=== PATIENT | male | born 1970 | race Caucasian/White ===

== ENCOUNTER 2021-07-27 00:32 | Emergency (ER) | payer BC, OTHER ==
[2021-07-27 02:11] LABS: Hemoglobin 15.8 g/dL (13.5-17.5); Mean Corpuscular HGB CONC 36.2 g/dL (32.0-36.0); Mean Corpuscular Volume 88.5 fl (81.2-95.1); Mean Platelet Volume 10.5 fl (7.4-10.4); Platelet Count 162 10x3/uL (150-450); RBC Distribution Width 12.3 % (11.5-14.5); Red Blood Cell (RBC) Count 4.94 10x6/uL (4.32-5.72); White Blood Cell (WBC) Count 4.8 10x3/uL (3.5-10.5)
[2021-07-27 02:12] LABS: #Neutrophils 2.7 10x3/uL (1.5-8.4); %Neutrophils 56.4 % (40.0-75.0)
[2021-07-27 02:15] LABS: MDiff Complete? YES; Manual Diff?? YES
[2021-07-27 02:30] LABS: Band 8 % (5-11); Lymphocytes 23 % (21-51); Monocytes 15 % (0-10); Neutrophil 49 % (42-75); Reactive Lymphocytes 4 % (0-10)
[2021-07-27 02:32] LABS: Platelet Morphology Comment Appears Adequate
[2021-07-27 02:55] LABS: AST (SGOT) 37 U/L (5-34); Albumin 4.5 g/dL (3.5-5.0); Alkaline Phosphatase 161 U/L (40-110); Anion Gap 17 mmol/L (10-20); BUN (Urea Nitrogen) 10 mg/dL (8.4-25.7); Bilirubin, Total 0.6 mg/dL (0.2-1.2); Calc. Creatinine Clearance 0 mL/min (70-130); Calcium 9.5 mg/dL (7.8-10.44); Carbon Dioxide 25 mmol/L (22-29); Chloride 101 mmol/L (98-107); Globulin 3.1 g/dL (2.4-3.5); Glucose 105 mg/dL (70-105); Potassium 4.1 mmol/L (3.5-5.1); Protein, Total 7.6 g/dL (6.0-8.3); Sodium 139 mmol/L (136-145)
[2021-07-27 03:00] LABS: ALT (SGPT) 44 U/L (8-55)
== END 2021-07-27 03:40 | disposition home or self-care (01) ==
LOC: CSHERS 00:32
DX: U07.1 COVID-19 (principal)
CPT/HCPCS: 71045; 80053; 84484; 85025; 93005

== ENCOUNTER 2021-07-28 20:27 | Emergency (ER) | payer BC | END 2021-07-28 20:50 | disposition home or self-care (01) | LOC: CSHERS 20:27 | DX: U07.1 COVID-19 (principal) | CPT/HCPCS: 93005 ==

== ENCOUNTER 2022-12-05 21:20 | Inpatient (IN) | payer BC ==
[~2022-12-05 21:20] MED LIST: Iopamidol 370 76% 100 ML VIAL ONE
[2022-12-05 22:30] LABS: #Basophils 0.1 10x3/uL (0.0-0.2); #Eosinphils 0.4 10x3/uL (0.0-0.5); #Monocytes 0.9 10x3/uL (0.0-1.1); #Neutrophils 3.2 10x3/uL (1.5-8.4); %Eosinophils 5.5 % (0.0-6.0); %Monocytes 12.6 % (0.0-10.0); %Neutrophils 46.5 % (40.0-75.0); Hematocrit 43.6 % (38.8-50.0); Hemoglobin 15.2 g/dL (13.5-17.5); Mean Corpuscular HGB CONC 34.9 g/dL (32.0-36.0); Mean Corpuscular Hemoglobin 31.3 pg (27.0-33.0); Mean Corpuscular Volume 89.9 fl (81.2-95.1); Mean Platelet Volume 9.5 fl (7.4-10.4); Platelet Count 398 10x3/uL (150-450); RBC Distribution Width 12.2 % (11.5-14.5); Red Blood Cell (RBC) Count 4.85 10x6/uL (4.32-5.72); White Blood Cell (WBC) Count 6.8 10x3/uL (3.5-10.5)
[2022-12-05 22:31] LABS: ALT (SGPT) 30 U/L (8-55); AST (SGOT) 27 U/L (5-34); Albumin 4.1 g/dL (3.5-5.0); Alkaline Phosphatase 174 U/L (40-110); Anion Gap 15 mmol/L (10-20); BUN (Urea Nitrogen) 8 mg/dL (8.4-25.7); Bilirubin, Total 0.3 mg/dL (0.2-1.2); Calc. Creatinine Clearance 0 mL/min (70-130); Calcium 9.4 mg/dL (7.8-10.44); Carbon Dioxide 23 mmol/L (22-29); Chloride 104 mmol/L (98-107); Estimated GFR 71; Globulin 3.4 g/dL (2.4-3.5); Glucose 102 mg/dL (70-105); Lipase 65 U/L (8-78); Magnesium 2.2 mg/dL (1.6-2.6); Potassium 3.9 mmol/L (3.5-5.1); Protein, Total 7.5 g/dL (6.0-8.3); Sodium 138 mmol/L (136-145)
[2022-12-05 23:09] LABS: SARS-CoV-2 NAA Rapid Test Not Detected (NotDetected)
[2022-12-05] MEDS ORDERED: Acetaminophen 650 MG Suppository PR PRN (23:29)
[2022-12-05] MEDS ORDERED: Bisacodyl 5 MG TAB PO PRN (23:29)
[2022-12-05] MEDS ORDERED: Senokot S 8.6-50 MG TAB PO PRN (23:29)
[2022-12-05] MEDS ORDERED: Ondansetron PF 4 MG/2 ML Vial IVP PRN (23:29)
[2022-12-05] MEDS ORDERED: Loperamide HCl 2 MG CAP PO PRN ×2 (23:29)
[2022-12-05] MEDS ORDERED: HYDROcodone/Acetaminophen 5/325 mg Tablet PO PRN (23:29)
[2022-12-05] MEDS ORDERED: Ondansetron ODT 4 MG TAB PO PRN (23:29)
[2022-12-05] MEDS ORDERED: Acetaminophen 325 MG TAB PO PRN (23:29)
[2022-12-05] MEDS ORDERED: Heparin 10,000 UNITS/ 10 ML VIAL SLOW IVP SCH (23:45)
[2022-12-05] MEDS ORDERED: Heparin 25,000 units/D5W 500 ML IVPB SCH (23:45)
[2022-12-06 00:16] LABS: Hemoglobin 15.3 g/dL (13.5-17.5); Platelet Count 357 10x3/uL (150-450)
[2022-12-06] MEDS ORDERED: Heparin 10,000 UNITS/ 10 ML VIAL ONE (02:08)
[2022-12-06] MEDS ORDERED: Heparin 25,000 units/D5W 500 ML ONE (02:08)
[2022-12-06 04:26] LABS: #Basophils 0.1 10x3/uL (0.0-0.2); #Eosinphils 0.4 10x3/uL (0.0-0.5); #Monocytes 0.8 10x3/uL (0.0-1.1); #Neutrophils 5.7 10x3/uL (1.5-8.4); %Basophils 0.9 % (0.0-2.0); %Eosinophils 4.2 % (0.0-6.0); %Lymphocytes 24.1 % (18.0-47.0); %Neutrophils 61.6 % (40.0-75.0); ALT (SGPT) 32 U/L (8-55); AST (SGOT) 29 U/L (5-34); Albumin 4.2 g/dL (3.5-5.0); Alkaline Phosphatase 180 U/L (40-110); Anion Gap 15 mmol/L (10-20); BUN (Urea Nitrogen) 8 mg/dL (8.4-25.7); Bilirubin, Total 0.3 mg/dL (0.2-1.2); Calc. Creatinine Clearance 0 mL/min (70-130); Calcium 9.5 mg/dL (7.8-10.44); Carbon Dioxide 25 mmol/L (22-29); Chloride 103 mmol/L (98-107); Estimated GFR 67; Globulin 3.6 g/dL (2.4-3.5); Glucose 105 mg/dL (70-105); Hematocrit 45.8 % (38.8-50.0); Hemoglobin 15.6 g/dL (13.5-17.5); Mean Corpuscular HGB CONC 34.1 g/dL (32.0-36.0); Mean Corpuscular Hemoglobin 31.2 pg (27.0-33.0); Mean Corpuscular Volume 91.6 fl (81.2-95.1); Mean Platelet Volume 9.6 fl (7.4-10.4); Platelet Count 432 10x3/uL (150-450); Potassium 3.9 mmol/L (3.5-5.1); Protein, Total 7.8 g/dL (6.0-8.3); RBC Distribution Width 12.1 % (11.5-14.5); Sodium 139 mmol/L (136-145); White Blood Cell (WBC) Count 9.2 10x3/uL (3.5-10.5)
[2022-12-06 05:35] VITALS: BMI 27.6
[2022-12-06 08:41] LABS: Legionella Urinary Ag Negative (Negative); Strep pneumo Urine Ag NEGATIVE (NEGATIVE)
[2022-12-06] MEDS: Famotidine 20 MG TAB PO SCH ×2 (09:06→20:19)
[2022-12-06] MEDS: Famotidine/PF 20 mg/2ml Vial SLOW IVP SCH ×2 (09:07→20:19)
[2022-12-06 09:19] LABS: D-Dimer Test 2.59 mg/L FEU (0.19-0.50); INR-International Normal Ratio 1.1; Prothrombin Time 11.6 sec (9.5-12.1)
[2022-12-06 09:23] LABS: PTT 126.6 sec (22.0-33.0)
[2022-12-06] MEDS ORDERED: Apixaban 5 MG TAB PO SCH (09:30)
[2022-12-06] MEDS: Apixaban 5 MG TAB PO SCH (20:19)
[2022-12-07 06:12] LABS: #Basophils 0.1 10x3/uL (0.0-0.2); #Eosinphils 0.3 10x3/uL (0.0-0.5); #Neutrophils 4.1 10x3/uL (1.5-8.4); %Basophils 0.9 % (0.0-2.0); %Eosinophils 4.2 % (0.0-6.0); %Lymphocytes 28.3 % (18.0-47.0); %Monocytes 13.1 % (0.0-10.0); %Neutrophils 53.2 % (40.0-75.0); Hematocrit 45.3 % (38.8-50.0); Hemoglobin 15.2 g/dL (13.5-17.5); Mean Corpuscular HGB CONC 33.6 g/dL (32.0-36.0); Mean Corpuscular Volume 92.3 fl (81.2-95.1); Mean Platelet Volume 9.4 fl (7.4-10.4); Platelet Count 372 10x3/uL (150-450); RBC Distribution Width 12.4 % (11.5-14.5); Red Blood Cell (RBC) Count 4.91 10x6/uL (4.32-5.72); White Blood Cell (WBC) Count 7.7 10x3/uL (3.5-10.5)
[2022-12-07 06:19] LABS: ALT (SGPT) 23 U/L (8-55); AST (SGOT) 23 U/L (5-34); Albumin 3.9 g/dL (3.5-5.0); Alkaline Phosphatase 163 U/L (40-110); Anion Gap 13 mmol/L (10-20); BUN (Urea Nitrogen) 13 mg/dL (8.4-25.7); Bilirubin, Total 0.4 mg/dL (0.2-1.2); Calc. Creatinine Clearance 92 mL/min (70-130); Calcium 9.1 mg/dL (7.8-10.44); Carbon Dioxide 25 mmol/L (22-29); Chloride 106 mmol/L (98-107); Estimated GFR 64; Globulin 3.3 g/dL (2.4-3.5); Glucose 94 mg/dL (70-105); Potassium 4.4 mmol/L (3.5-5.1); Protein, Total 7.2 g/dL (6.0-8.3); Sodium 140 mmol/L (136-145)
[2022-12-07] MEDS: Famotidine/PF 20 mg/2ml Vial SLOW IVP SCH (08:40)
[2022-12-07] MEDS: Famotidine 20 MG TAB PO SCH (08:43)
[2022-12-07] MEDS: Apixaban 5 MG TAB PO SCH (08:43)
[2022-12-07 10:49] VITALS: BP 138/82; TEMP 97.8
[2022-12-07 11:49] LABS: HEX PHOS LA Tube 1 45.9 SEC; HEX PHOS LA Tube 2 13.8 SEC; Hexagonal Phospholipid Neut 2.1 SEC (0-8.0); Protein C Activity 89 % (78-152)
[2022-12-08 13:28] LABS: Cardiolipin IgA Ab 3.4 APL-U/mL (<14 Negative); Cardiolipin IgG Ab 2.1 GPL-U/mL (<10 Negative); EliA APS New Method **** NEW METHOD ****
[2022-12-08 13:29] LABS: Cardiolipin IgM Ab 1.9 MPL-U/mL (<10 Negative)
[2022-12-09 14:37] LABS: QuantiFERON-TB Gold Plus POSITIVE (Negative)
[2022-12-13] MEDS ORDERED: Apixaban 5 MG TAB PO SCH (09:00)
== END 2022-12-07 10:48 | disposition home or self-care (01) | DRG 175 ==
LOC: CSHERS 21:20 → CSHTELE 23:29 → UNDOADMIN 12-06 00:09 → CSHTELE 12-06 00:09
PROVIDERS: ADMIT Family Medicine; ATTEND Internal Medicine
DX: I26.94 Multiple subsegmental thrombotic pulmonary emboli without acute cor pulmonale (principal); J86.9 Pyothorax without fistula; J90 Pleural effusion, not elsewhere classified; R04.2 Hemoptysis; M54.6 Pain in thoracic spine; M79.605 Pain in left leg; R74.8 Abnormal levels of other serum enzymes; R00.1 Bradycardia, unspecified; Z20.822 Contact with and (suspected) exposure to COVID-19
CPT/HCPCS: 36415; 71045; 71046; 71275; 76604; 80053; 82977; 83090; 83605; 83690; 83735; 83880; 84145; 85025; 85300; 85303; 85305; 85307; 85379; 85598; 85610; 85730; 86147; 86480; 87040; 87449; 87899; 93005; 93306; 93970; J1644; Q9967